=== PATIENT | female | born 1985 | race Caucasian/White ===

== ENCOUNTER 2018-06-02 20:38 | Emergency (ER) | payer OTHER ==
[~2018-06-02] VITALS: Ht 160 cm; Wt 72.6 kg
[~2018-06-02 20:38] MED LIST: VALA500 PO
[2018-06-02] MEDS ORDERED: IBUP600 PO (21:14)
== END 2018-06-02 21:21 | disposition home or self-care (01) ==
LOC: ER 20:38
DX: S82.832A Other fracture of upper and lower end of left fibula, initial encounter for closed fracture (principal); X50.9XXA Other and unspecified overexertion or strenuous movements or postures, initial encounter; Z79.899 Other long term (current) drug therapy
CPT/HCPCS: 29515; 73610; 99283-25

== ENCOUNTER → 2018-12-01 | Outpatient (CLI) | payer OTHER ==
[~2018-12-01] MED LIST changes: +IBUP600 PO
[2018-12-02 07:11] LABS: DHEA-SULFATE 405.5 ug/dL (84.8-378.0); ESTRADIOL 24.2 pg/mL (.)
[2018-12-02 20:06] LABS: FREE TESTOSTERONE(DIRECT) 9.2 pg/mL (0.0-4.2); TESTOSTERONE, SERUM 43 ng/dL (8-48)
== END | disposition home or self-care (01) ==
LOC: LAB 09:49 → LAB SHORT 09:49
PROVIDERS: Nurse Practitioner Family
DX: F32.9 Major depressive disorder, single episode, unspecified (principal); F41.9 Anxiety disorder, unspecified; E34.9 Endocrine disorder, unspecified; R53.83 Other fatigue; R68.82 Decreased libido; R63.5 Abnormal weight gain
CPT/HCPCS: 82533; 82627; 82670; 84144; 84402; 84403

== ENCOUNTER → 2023-05-05 | Outpatient (CLI) | payer OTHER ==
[2023-05-06 13:08] LABS: HBSAG SCREEN Negative (Negative); HCV ANTIBODY Non Reactive (Non Reactive); HIV AB/P24 AG SCREEN Non Reactive (Non Reactive)
[2023-05-07 18:09] LABS: CHLAMYDIA BY NAA Negative (Negative); GONOCOCCUS BY NAA Negative (Negative); TRICH VAG BY NAA Negative (Negative)
== END | disposition home or self-care (01) ==
LOC: LAB 17:14 → LAB SHORT 17:14
PROVIDERS: Registered Nurse Community Health
DX: Z11.3 Encounter for screening for infections with a predominantly sexual mode of transmission (principal); Z20.2 Contact with and (suspected) exposure to infections with a predominantly sexual mode of transmission
CPT/HCPCS: 86592; 86803; 87340; 87389; 87491; 87591; 87661

== ENCOUNTER → 2023-07-07 | Outpatient (CLI) | payer OTHER | END | disposition home or self-care (01) | LOC: LAB 19:19 | DX: Z11.3 Encounter for screening for infections with a predominantly sexual mode of transmission (principal); Z20.2 Contact with and (suspected) exposure to infections with a predominantly sexual mode of transmission ==